=== PATIENT | female | born 1955 | race Caucasian/White ===

== ENCOUNTER → 2016-10-09 | Outpatient (CLI) | payer BC ==
--- NOTE | 2016-10-09 12:17 | Diagnostic Imaging Report ---
Indication: PAIN Technique: IV administration nonionic contrast. Arterial phase spiral acquisitions obtained through the neck Multiplanar and 3-D reconstructions were generated. Total dose length product 1788 mGycm. CTDIvol(s) 16, 82, 51 mGy. Radiation dose was minimized using automated exposure control Comparison: None Findings: There is variant anatomy of the left vertebral artery. Originating directly off of the aortic arch. It remains anterior and slightly lateral to the lower cervical spine, and enters the foramen transversarium at the C4 level. It then follows a normal intraforaminal course, although it is very tortuous between C2 and C1, as is the contralateral vertebral artery. It then enters the foramen magnum in the usual configuration. The left vertebral artery is slightly smaller than the right vertebral artery. There is also unusual anatomy of the vertebral arterial confluence and basilar artery. 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 The right vertebral artery originates typically off of the right subclavian artery. It enters the C6 foramen transversarium as is typical and then follows a typical intraforaminal course. As on the contralateral side, is very tortuous between C2 and C1 and projects quite laterally before entering the C1 foramen. It then the foramen magnum in typical fashion. No significant stenosis of either vertebral artery is demonstrated. The right common carotid and external carotid arteries are unremarkable. The left common carotid and internal carotid arteries are unremarkable. No significant atherosclerotic plaquing, stenosis, or dissection demonstrated. The bilateral M1 segments and proximal branches are patent and nonstenotic. The bilateral A1 segments and proximal branches are patent and nonstenotic. No definite anterior communicating artery is demonstrated. 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 No significant stenosis demonstrated. There is patency of the bilateral posterior communicating arteries. The origin of the right posterior communicating artery is somewhat more proximal than expected. The posterior cerebral arteries are patent without significant stenosis. The included lung apices are clear. The thyroid is unremarkable. No cervical mass or adenopathy demonstrated. There are degenerative changes of the cervical spine. Posterior osteophytes C5-6 and C6-7 result in borderline spinal stenosis. 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 Entry into the foramina above the C6 level is typical within the left vertebral artery has a separate origin off of the aortic arch No evidence of extracranial cerebrovascular insufficiency Fenestrated proximal basilar artery-normal anatomic variant Variant anatomy of the [place], as described Cervical spondylosis. Borderline spinal stenosis at C5-6 and C6-[address] scanner at [facility] is accredited by the [employer] and the scans are performed using protocols designed to limit radiation exposure to as low as reasonably achievable to attain images of sufficient resolution adequate for diagnostic evaluation.
== END | disposition home or self-care (01) ==
LOC: CAT 08:32
DX: M47.892 Other spondylosis, cervical region (principal)
CPT/HCPCS: 70498; Q9967